=== PATIENT | male | born 1985 | race Caucasian/White ===

== ENCOUNTER 2019-11-09 15:52 | Emergency (ER) | payer SELFPAY ==
[2019-11-09 16:02] VITALS: BP 116/111; PULSE 104; RESP 18; TEMP 37.1; O2SAT 98
--- NOTE | 2019-11-09 16:15 | DI.RAD_ITS ---
EXAM: XR KNEE LT 4V AP,LAT,ZULEYKA,PAT CLINICAL HISTORY: pain, injury TECHNIQUE: COMPARISON: No exams were available for comparison FINDINGS: Four views were obtained. No gross joint effusion identified on the lateral film. No evidence of ac trevor fracture. IMPRESSION:
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
--- NOTE | 2019-11-09 16:50 | DI.VRAD_ITS ---
PROCEDURE INFORMATION: Exam: XR Left Knee Exam date and time: 11/09/2019 4:38 PM Age: 34 years old Clinical indication: Injury or trauma; Fall; Initial encounter; Blunt trauma; Knee; Left TECHNIQUE: Imaging protocol: XR Left knee. Views: 4 or more views. COMPARISON: No relevant prior studies available. FINDINGS: Bones/joints: No acute fracture or dislocation. Joint spaces are unremarkable. Soft tissues: Unremarkable. IMPRESSION: No acute findings. Dictated and Authenticated by: José Miguel Duran MD. Ordering:BEAU Gutierrez MD
[2019-11-09 17:19] VITALS: BP 144/101; PULSE 104; RESP 20; TEMP 37.1; O2SAT 97
--- NOTE | 2019-11-10 05:21 | NUR.NOTE ---
Nursing Note:copied referal to est pcp for cm in box...11/10/19
--- NOTE | 2019-11-10 10:38 | CMPROGNOTE_ITS ---
- If Service Date Differs Date of service: 11/10/19 Time of Service: 10:38 Care Management Progress Note At the request of ED provider, HEIKE coordinates referral to Dr. Mendez at [facility] ([facility]) for the purpose of establishing care with a PCP. HEIKE also sends a referral to [facility] for assistance in exploring health insurance options.
== END 2019-11-09 17:38 | disposition home or self-care (01) ==
PROVIDERS: Emergency Provider Physician Assistant
DX: S83.8X2A Sprain of other specified parts of left knee, initial encounter (principal); Y04.2XXA Assault by strike against or bumped into by another person, initial encounter; R03.0 Elevated blood-pressure reading, without diagnosis of hypertension; R00.0 Tachycardia, unspecified
CPT/HCPCS: 29505; 99283; 73564; E0114; L1810